=== PATIENT | female | born 1990 | race Caucasian/White ===

== ENCOUNTER → 2017-07-13 | Outpatient (CLI) | payer BC ==
[~2017-07-13] MED LIST: MOTRIN 600600 MG/TAB PO; PRENATAL1 TA6; TAMIFLU 75MG75 MG PO
== END ==
LOC: COL.RAD 10:54
DX: E04.2 Nontoxic multinodular goiter (principal); E05.80 Other thyrotoxicosis without thyrotoxic crisis or storm

== ENCOUNTER → 2017-07-20 | Outpatient (CLI) | payer BC ==
[~2017-07-20] VITALS: Ht 167.6 cm; Wt 67.1 kg
[~2017-07-20] MED LIST changes: +PRENATAL MVI PO; -PRENATAL1 TA6
[2017-07-20 09:59] VITALS: BP 105/64; PULSE 70
[2017-07-20 11:53] VITALS: BP 105/64; PULSE 70
== END ==
LOC: COL.RAD 09:39
DX: E04.2 Nontoxic multinodular goiter (principal)
CPT/HCPCS: 25581

== ENCOUNTER → 2017-08-04 | Outpatient (REF) ==
[2017-08-04 16:31] LABS: ALBUMIN 4.1 gm/dL (3.5-5.0); CALCIUM 9.4 mg/dL (8.4-10.2); PHOSPHOROUS 2.6 mg/dL (2.5-4.5)
== END ==
LOC: ZMSC 16:16
PROVIDERS: Otolaryngology
DX: Z01.89 Encounter for other specified special examinations (principal)

== ENCOUNTER → 2017-08-05 | Outpatient (REF) ==
[2017-08-05 07:04] LABS: ALBUMIN 3.6 gm/dL (3.5-5.0); CALCIUM 8.9 mg/dL (8.4-10.2); PHOSPHOROUS 3.4 mg/dL (2.5-4.5)
[2017-08-05 15:23] LABS: ALBUMIN 3.7 gm/dL (3.5-5.0); CALCIUM 8.6 mg/dL (8.4-10.2); PHOSPHOROUS 3.3 mg/dL (2.5-4.5)
[2017-08-06 11:22] LABS: THYROGLOBULIN AB SCREEN <1.8 IU/mL (<4.0); THYROGLOBULIN TUMOR MARKER 424 ng/mL (())
== END ==
LOC: ZMSC 06:28
PROVIDERS: Otolaryngology
DX: Z01.89 Encounter for other specified special examinations (principal)

== ENCOUNTER 2017-09-20 13:00 | Outpatient (RCR) | payer BC ==
[2017-09-19 13:20] VITALS: BP 99/57; PULSE 70; TEMP 98.3
[~2017-09-20] VITALS: Ht 167.6 cm; Wt 68.0 kg
[~2017-09-20 13:00] MED LIST changes: +SYNTHROID 0.0.025 MG PO
[2017-09-20] MEDS ORDERED: LOW-OGESTREL 281 TAB PO (13:05)
[2017-09-20 13:06] VITALS: BP 110/68; PULSE 65; TEMP 97.8
== END 2017-12-18 | disposition home or self-care (01) ==
LOC: EUO
DX: C73 Malignant neoplasm of thyroid gland (principal)
CPT/HCPCS: J3240

== ENCOUNTER → 2017-09-21 | Outpatient (CLI) | payer BC ==
[~2017-09-21] MED LIST changes: +LOW-OGESTREL 281 TAB PO
== END ==
LOC: COL.RAD 12:58
DX: C73 Malignant neoplasm of thyroid gland (principal)
CPT/HCPCS: A9517

== ENCOUNTER → 2017-09-28 | Outpatient (CLI) | payer BC | LOC: COL.RAD 10:27 | DX: C73 Malignant neoplasm of thyroid gland (principal) ==

== ENCOUNTER 2018-03-14 08:00 | Outpatient (RCR) | payer BC ==
[2018-03-13 08:00] VITALS: BP 108/55; PULSE 109; TEMP 97.9
[~2018-03-14] VITALS: Ht 167.6 cm; Wt 66.2 kg
[2018-03-14 07:57] VITALS: BP 108/49; PULSE 73; TEMP 98.3
[~2018-03-14 08:00] MED LIST changes: +ALLEGRA ALLERG180 MG PO; +LOESTRIN 1/20 28 DAY PO; +MICROGESTIN FE1 TA1 PO
== END 2018-06-11 | disposition home or self-care (01) ==
LOC: EUO
DX: C73 Malignant neoplasm of thyroid gland (principal)
CPT/HCPCS: J3240

== ENCOUNTER → 2018-03-15 | Outpatient (CLI) | payer BC | LOC: COL.RAD 07:54 | DX: C73 Malignant neoplasm of thyroid gland (principal) ==

== ENCOUNTER 2019-03-09 15:00 | Outpatient (RCR) | payer BC ==
[2019-03-05 15:00] VITALS: BP 102/58; PULSE 62; TEMP 98.1
[2019-03-06 15:03] VITALS: BP 102/53; PULSE 56; TEMP 97.7
[~2019-03-09] VITALS: Ht 167.6 cm; Wt 65.2 kg
[2019-03-10 00:10] LABS: .THYROGLOBULIN ANTIBODIES <3 IU/mL (0-5)
[2019-03-13 11:41] LABS: THYROGLOBULIN AB SCREEN <1.8 IU/mL (<4.0); THYROGLOBULIN TUMOR MARKER <0.1 ng/mL (())
== END 2019-03-09 15:19 | disposition home or self-care (01) ==
LOC: EUO 15:00
PROVIDERS: Otolaryngology
DX: C73 Malignant neoplasm of thyroid gland (principal)
CPT/HCPCS: J3240

== ENCOUNTER → 2020-08-08 | Outpatient (CLI) | payer BC ==
[~2020-08-08] MED LIST changes: +IBU800 M1 PO; +PRENATAL PLUS PO
== END ==
LOC: ZCOL.LAB 08:00
DX: Z20.822 Contact with and (suspected) exposure to COVID-19 (principal)

== ENCOUNTER 2020-08-10 06:38 | Inpatient (IN) | payer BC ==
[~2020-08-10] VITALS: Ht 167.6 cm; Wt 89.5 kg
[2020-08-10] VITALS (38 sets, daily range): BP systolic 89–128; BP diastolic 51–77; PULSE 63–93; TEMP 97.3–98.9
[~2020-08-10 06:38] MED LIST changes: -IBU800 M1 PO; -PRENATAL PLUS PO
--- NOTE | 2020-08-10 06:45 | NUR ---
Patient arrives ambulatory with spouse with complaints of SROM at 0500. Patient reports occasional pressure but denies painful contractions. Reports normal movemnent and denies vaginal bleeding. Patient changes into gown, EFM explained and placed. VS obtained. 0650- Amniotrace positive, SVE per Maribeth Alegre RN / with clear fluid noted on exam. Patient repositioned WL and updated on plan of care. Dr. Ayala notified via phone by Maribeth Alegre upon arrival and admits orders recieved. IV started and labs obtained, LR infusing per protocol. 0710- Dr. Ayala at bedside. Reviewed FHR strip and contraction pattern. Discussed plan of care for patient to labor expectantly at this time and may start Pitocin augmentation at 0900 if labor has not progressed and patient desires. Patient denies questions. 0762- Report to Vincent Babcock RN who assumes care of patient at this time.
[2020-08-10] MEDS ORDERED: PRENATAL PLUS PO (07:15)
[2020-08-10 07:28] LABS: BASO % 0.4 % (0.0-2.0); EOS # 0.2 (0.0-0.7); EOS % 1.8 % (0-4.0); GRAN # 7.7 (1.4-6.5); GRAN % 74.9 % (42.2-75.2); HEMATOCRIT 38.4 % (37.0-47.0); HEMOGLOBIN 12.8 g/dl (12.5-16.0); LYMPH # 1.6 (1.2-3.4); LYMPH % 15.2 % (20.0-51.0); MEAN CELL VOLUME 91 fl (80.0-100.0); MEAN CORPUSCULAR HEMOGLOBIN 30 pg (27.0-31.0); MEAN CORPUSCULAR HGB CONC 33 g/dl (33.0-37.0); MEAN PLATELET VOLUME 9.5 fl (7.4-10.4); MONO # 0.7 (0.1-0.6); PLATELET COUNT 224 K/mm3 (130-400); RED BLOOD COUNT 4.21 M/mm3 (4.10-5.30); REDCELL DISTRIBUTION WIDTH-CV 13.2 % (11.5-14.5)
--- NOTE | 2020-08-10 08:05 | NUR ---
0805- PATIENT SPOUSE CAME TO DESK AND VERBALIZED THAT THE PATIENT WOULD LIKE TO GET UP AND WALK IF THAT WAS OKAY. THIS RN CAME TO BEDSIDE. EXPLAINED THE 40 MINUTES OFF THE MONITOR AND A 20 MINUTE REACTIVE STRIP POLICY WE HAVE HERE AT THE HOSPITAL. ADVISED THE PATIENT SHE IS ALLOWED TO PACE IN HER ROOM, WALK THE HALLS, BE ON A BIRTHING BALL, ROCKING CHAIR, OR WHATEVER SHE WOULD LIKE. PATIENT VERABLIZED UNDERSTANDING AND VOICED WANTING TO WALK IN HER ROOM FOR A LITTLE BIT. 0806- PATIENT DISCONNECTED FROM MONITORS. FHR TRACING HAS BEEN A CATEGORY I WITH A REACTIVE STRIP. ADVISED SHE CAN HAVE 40 MINUTES TO WALK AROUND IF SHE WOULD LIKE. SHE VERABLIZED UNDERSTANDING AND DENIED FURTHER NEEDS. CALL LIGHT WITHIN REACH.
--- NOTE | 2020-08-10 15:25 | NUR ---
1525- THIS RN TO BEDSIDE AFTER DEEP VARIABLE INTO THE 70 RANGE WAS NOTED. PATIENT STATES BABY WAS JUST KICKING REALLY HARD. SHE DOES NOT FEEL MUCH PRESSURE. THIS RN REMAINS AT BEDSIDE TO MONITOR FHR TRACING. 1532- PATIENT VERBALIZES FEELING MORE PRESSURE AND IT NOT LETTING UP. PATIENT NOTED TO NOT BE HAVING A CONTRACTIONS AT THIS TIME. 1535- SVE COMPLETE AND 0 STATION. DISCUSSED PRACTICE PUSHING WITH PATIENT. SHE VERABLIZED UNDERSTANDING. 1538- ONE PRACTICE PUSH DONT AND HEAD MOVED DOWN TO +1 STATION WITH EASE. ADVISED PATIENT TO STOP PUSHING AND I WOULD CALL THE DOCTOR AND STAFF NEEDED FOR DELIVERY. THIS RN REMAINS AT BEDSIDE. 1540- THIS RN CALLS STAFF AND NOTIFIES OF DELIVERY. THIS RN ALSO CALLS DR. NICOLE, WHO IS GAS SUB[employer]ATION OPERATOR AND ADVISES HE IS NEEDED AT BEDSIDE FOR DELIVERY. THIS RN REMAINS AT BEDSIDE. 1548- DR. NICOLE TO BEDSIDE. PATIENT AND BED SET UP FOR DELIVERY. DUNHAM REMOVED AT THIS TIME WITH 250 CC OUTPUT NOTED. 1553- 1ST PUSH WITH PROVIDER. 1555- OF VIABLE MALE . INFANT STIMULATED BY DOCTOR AFTER DELIVERY. CORD CUT BY THE FATHER AND THEN THE WAS PLACED TO THE MOTHERS ABDOMEN WHERE THE NURSERY NURSE ASSUMES CARE AT THIS TIME. 1558- OF PLACENTA. FUNDUS MASSAGED TO FIRM BY THIS RN AND MODERATE/HEAVY AMOUNT OF BLOOD NOTED AT FIRST. PITOCIN STARTED PER PROTOCOL AT 333ML/HR. PROVIDER NOTED A 1ST DEGREE TEAR AND BEGAN REPAIRS. EBL NOTED TO BE 200. 1605- REPAIRS FINISHED, FUNDUS FIRM, VITALS STABLE. PATIENT AND ROOM CLEANED UP AND PUT BACK TOGETHER. NEW PERIPAD AND ICEPACK TO PERINEUM. RECOVERY STARTED.
--- NOTE | 2020-08-10 19:05 | NUR ---
Able to bend knee and move R leg. Able to bend L knee slightly but not move leg freely.
--- NOTE | 2020-08-10 20:05 | NUR ---
Pivot transfer to wheelchair with standby assist of 2. Unable to weight bear on L leg. Moved to room via wheelchair, pivot transfer to bed with put problems. Pt instructed to call out for staff assistance if needs to get up verbalizes understanding.
[2020-08-11 02:10] VITALS: BP 123/75; PULSE 72; TEMP 97.8
[2020-08-11] MEDS ORDERED: IBU800 M1 PO (07:58)
[2020-08-11 08:00] VITALS: BP 119/67; PULSE 92; TEMP 98.2
--- NOTE | 2020-08-11 10:13 | NUR ---
Initial visit; Parents thanked [employer] for offering congratulations and God's blessings for the of their son. [employer] thanked family for choosing [facility] [place]/[facility].
--- NOTE | 2020-08-11 14:12 | NUR ---
Rests in bed, alert. Request tylenol. Tylenol 650 mg given per request and as ordered.
[2020-08-11 18:00] VITALS: BP 121/70; PULSE 73; TEMP 98.1
--- NOTE | 2020-08-11 19:00 | NUR ---
waiting for for discharge
== END 2020-08-11 20:45 | disposition home or self-care (01) | DRG 807 ==
LOC: LDR 06:38 → LDRO 06:38 → LDR 06:47 → LDRO 07:05 → LDR 07:10 → OB 20:20
PROVIDERS: Obstetrics & Gynecology; ADMIT Obstetrics & Gynecology
PROC: 10E0XZZ Delivery of Products of Conception, External Approach (ICD-10-PCS; principal; 2020-08-10)
PROC: 0HQ9XZZ Repair Perineum Skin, External Approach (ICD-10-PCS; 2020-08-10)
DX: O48.0 Post-term pregnancy (principal); Z37.0 Single live birth; O70.0 First degree perineal laceration during delivery; Z3A.40 40 weeks gestation of pregnancy; Z85.850 Personal history of malignant neoplasm of thyroid
CPT/HCPCS: J2590; J2795; J7120